=== PATIENT | female | born 1935 | race Caucasian/White ===

== ENCOUNTER 2018-11-11 09:31 | Observation (INO) | payer MEDICARE ==
[2018-11-08 10:56] VITALS: BP 148/69
[~2018-11-11] VITALS: Ht 157.5 cm; Wt 36.8 kg
[~2018-11-11 09:31] MED LIST: HYDR-3307 PO
[2018-11-11] MEDS ORDERED: LACTATED RINGERS 1,000 ML IV SCH ×2 (10:02→18:30)
[2018-11-11] MEDS ORDERED: LIDOCAINE-MPF 1%, 5ML ONE (11:27)
[2018-11-11] MEDS ORDERED: HYDROcodone/APAP 5/325 TABLET ONE (12:05)
[2018-11-11] MEDS ORDERED: HYDROcodone/APAP 10/325 MG TABLET PO ONE (12:30)
[2018-11-11] MEDS ORDERED: HYDROcodone/APAP 5/325 TABLET PO ONE (12:30)
[2018-11-11] MEDS ORDERED: BUPIVACAINE/PF-EPI 0.5% 1:200K ONE (14:51)
[2018-11-11] MEDS ORDERED: LIDOCAINE 1%, 20ML ONE (14:51)
[2018-11-11] MEDS ORDERED: ISOSULFAN BLUE 10 MG/ML, 5ML IV ONE (14:51)
[2018-11-11] MEDS ORDERED: EPHEDRINE 50 MG/ML, 1ML ONE (15:19)
[2018-11-11] MEDS ORDERED: CEFAZOLIN 1,000 MG ONE (15:19)
[2018-11-11] MEDS ORDERED: PROPOFOL 10 MG/ML, 20ML ONE (15:19)
[2018-11-11] MEDS ORDERED: ONDANSETRON 2MG/ML, 2ML ONE (15:19)
[2018-11-11] MEDS ORDERED: LIDOCAINE-MPF 2% ,5ML ONE (15:19)
[2018-11-11] MEDS ORDERED: DEXAMETHASONE 4 MG/ML, 5ML ONE (15:19)
[2018-11-11] MEDS ORDERED: MIDAZOLAM 1 MG/ML, 2ML ONE (15:23)
[2018-11-11] MEDS ORDERED: FENTANYL PF 100 MCG/2ML ONE ×2 (15:23→16:52)
[2018-11-11] MEDS ORDERED: OXYcodone 5 MG/5 ML ORAL.SOL UDC ONE (16:52)
[2018-11-11] MEDS: FENTANYL PF 100 MCG/2ML IV PRN ×2 (16:54→16:59)
[2018-11-11] MEDS ORDERED: OXYcodone 5 MG/5 ML ORAL.SOL UDC PO PRN (17:00)
[2018-11-11] MEDS ORDERED: MIDAZOLAM 1 MG/ML, 2ML IV PRN (17:00)
[2018-11-11] MEDS ORDERED: LABETALOL 5MG/ML, 20ML IV PRN (17:00)
[2018-11-11] MEDS ORDERED: HYDROmorphone 1 MG/ML, 1ML IV PRN (17:00)
[2018-11-11] MEDS ORDERED: ONDANSETRON 2MG/ML, 2ML IVPush PRN ×2 (17:00→18:30)
[2018-11-11] MEDS ORDERED: MEPERIDINE/PF 25MG/0.5ML IVPush PRN (17:00)
[2018-11-11] MEDS ORDERED: DIPHENHYDRAMINE 50 MG/ML, 1ML IVPush PRN (18:30)
[2018-11-11 19:26] VITALS: BP 114/58
[2018-11-11] MEDS: HYDROcodone/APAP 5/325 TABLET PO PRN (20:54)
[2018-11-12 00:08] VITALS: BP 91/47
[2018-11-12] MEDS: HYDROcodone/APAP 5/325 TABLET PO PRN ×2 (01:02→07:40)
[2018-11-12 03:48] VITALS: BP 90/45
[2018-11-12 04:33] VITALS: BP 98/54
[2018-11-12 07:36] VITALS: BP 97/45
[2018-11-12 08:50] VITALS: BP 97/53
== END 2018-11-12 10:20 | disposition home or self-care (01) ==
LOC: SDC 09:31 → EDSTATUS 13:00 → 4NOR 18:00 → SDC 23:33 → DCLOUNGE 11-12 09:59
PROVIDERS: ADMIT Surgery; ATTEND Surgery
DX: C50.912 Malignant neoplasm of unspecified site of left female breast (principal); M81.0 Age-related osteoporosis without current pathological fracture
CPT/HCPCS: 19303; 38525; 38792; 88307; 88333; 93005; A9541; G0378; J0690; J1100; J2250; J2405; J2704; J3010; J3490; J7120

== ENCOUNTER 2019-12-26 11:01 | Outpatient (CLI) | payer MEDICARE ==
[~2019-12-26 11:01] MED LIST changes: -HYDR-3307 PO; +HYDR-36 PO
[2019-12-26 11:26] LABS: ALANINE AMINOTRANSFERASE 15 U/L (12-78); ALBUMIN 3.2 g/dL (3.4-5.0); ANION GAP 7 mmol/L (5-15); CALCIUM 8.6 mg/dL (8.5-10.1); CHLORIDE 102 mmol/L (98-107); CREATININE 0.77 mg/dL (0.55-1.02)
[2019-12-26 11:28] LABS: ALKALINE PHOSPHATASE 119 U/L (45-117); BILIRUBIN,TOTAL 0.2 mg/dL (0.2-1.0); TOTAL PROTEIN 7.7 g/dL (6.4-8.2)
== END 2019-12-26 23:59 | disposition home or self-care (01) ==
LOC: LAB 11:01
PROVIDERS: ATTEND Surgery
DX: R92.2 Inconclusive mammogram (principal); Z85.3 Personal history of malignant neoplasm of breast
CPT/HCPCS: 36415; 80053